=== PATIENT | female | born 1970 | race Caucasian/White ===

== ENCOUNTER → 2016-10-10 | Outpatient (CLI) | payer OTHER, MEDICAID | LOC: FIMAGING 09:53 | PROVIDERS: ATTEND Physician Assistant Surgical | DX: Z09 Encounter for follow-up examination after completed treatment for conditions other than malignant neoplasm (principal); Z98.1 Arthrodesis status; M53.3 Sacrococcygeal disorders, not elsewhere classified ==

== ENCOUNTER → 2017-03-02 | Outpatient (CLI) | payer OTHER, MEDICAID | LOC: FIMAGING 14:15 | PROVIDERS: ATTEND Physician Assistant | DX: Z98.1 Arthrodesis status (principal) ==